=== PATIENT | female | born 1980 ===

== ENCOUNTER 2019-09-08 08:42 | Day surgery (SDC) | payer OTHER ==
[~2019-09-08] VITALS: Ht 162.6 cm; Wt 88.0 kg
[2019-09-08] VITALS (8 sets, daily range): BP systolic 106–144; BP diastolic 62–86
[~2019-09-08 08:42] MED LIST: DUCODYL5 MG PO; LR 1000ml 1,000 ML IVLG SCH; OMEPRAZOLE20 M2 ORAL; REGULOID PO
--- NOTE | 2019-09-08 08:50 | Short Stay Surgery H&P ---
History of Present Illness History of Present Illness Chief Complaint Abdominal/epigastric pains/GERDs HPI Jazmín Lynn is a 39 year old female who was admitted on for GERDS/abdominal pains Patient History Allergies: Coded Allergies: No Known Allergies (Unverified , 09/07/19) PAST MEDICAL HISTORY: (1) History of throat surgery Medication History Scheduled Bisacodyl (Ducodyl), 5 MG PO DAILY, (Reported) Omeprazole (Omeprazole), 20 MG ORAL DAILY, (Reported) [Reguloid], 120 MG PO DAILY, (Reported) Review of Systems Cardiovascular: Reports: no symptoms Respiratory: Reports: no symptoms Skeletal: Reports: trauma Gastrointestinal: Reports: gastro esophageal reflux disease Genitourinary: Reports: no symptoms Neurologic: Reports: no symptoms Endocrine: Reports: no symptoms Hematologic: Reports: no symptoms Physical Exam Skin: normal HENT: normal Heart: normal Lungs: normal Abdomen: abnormal Extremities: normal Genitourinary: normal Plan Plan of Care Upper GI. endoscopy with biopsy Preop Interventions none Summary of Findings See the reports. Attestation Are the patient's medical conditions optimized for surgery? Attestation Response: yes Dede Coleman MD Sep 08, 2019 08:50
--- NOTE | 2019-09-08 08:51 | Pre-Procedure Note/Attestation ---
Pre-Procedure Note/Attestation Complete Prior to Procedure Planned Procedure: left Procedure Narrative: Examination of the upper and the lower GI tract Indications for Procedure Pre-Operative Diagnosis: R/O gastritis/peptic ulcer and esophagitis Attestation I attest that I discussed the nature of the procedure; its benefits; risks and complications; and alternatives (and the risks and benefits of such alternatives ), prior to the procedure, with the patient (or the patient's legal renewals representative). I attest that, if there was a reasonable possibility of needing a blood transfusion, the patient (or the patient's legal renewals representative) was given the [facility] standardized written summary, pursuant to the Elías Antolin Blood Safety Act ([place] Health and Safety Code # 1645, as amended). I attest that I re-evaluated the patient just prior to the surgery and that there has been no change in the patient's H&P, except as documented below: Dede Coleman MD Sep 08, 2019 08:51
--- NOTE | 2019-09-08 09:41 | Discharge Instructions ---
Discharge Instructions Discharge Instructions Follow up with: See the doctor after two weeks in the office For Congestive Heart Failure Reminder Report to your physician any weight gain of 5 pounds or more in one week. Dede Coleman MD Sep 08, 2019 09:41
[2019-09-08] MEDS ORDERED: Propofol 200mg/20ml IV ONE (10:00)
[2019-09-08] MEDS ORDERED: Lidocaine 1% MPF 10mg/ml 5ml ONE (10:00)
[2019-09-08] MEDS ORDERED: LR 1000ml ONE (10:00)
--- NOTE | 2019-09-08 10:01 | Anethesia Preoperative Eval ---
Anesthesia Pre-op PMH/ROS General Date of Evaluation: Sep 08, 2019 Time of Evaluation: 09:40 Anesthesiologist: Kristina Sarkar CRNA ASA Score: ASA 2 Mallampati Score Class I : Soft palate, uvula, fauces, pillars visible Class II: Soft palate, uvula, fauces visible Class III: Soft palate, base of uvula visible Class IV: Only hard plate visible Mallampati Classification: Class II Surgeon: Koko Diagnosis: GERD Surgical Procedure: EGD with biopsies Anesthesia History: none Family History: no anesthesia problems Allergies: Coded Allergies: No Known Allergies (Unverified , 09/07/19) Medications: see eMAR Patient NPO?: Yes NPO Date: Sep 08, 2019 NPO Time: 00:00 Past Medical History Cardiovascular: Denies: HTN, CAD, ND, valve dz, arrhythmia, other Pulmonary: Denies: asthma, COPD, MARY, other Neurologic/Psychiatric: Reports: depression/anxiety; Denies: dementia, CVA, TIA, other HEENT: Denies: cataract (L), cataract (R), glaucoma, [place] (L), [place] (R), other Hematology/Immune: Denies: anemia, DVT, bleeding disorder, other Musculoskeletal/Integumentary: Denies: OA, RA, DJD, DDD, edema, other Other: obesity PMH Narrative: as noted above PSxH Narrative: tonsillectomy, eye surgery Anesthesia Pre-op Phys. Exam Physician Exam Last Vital Signs Date Time Temp Pulse Resp B/P (MAP) Pulse Ox O2 Delivery O2 Flow Rate FiO2 09/08/19 09:21 Room Air 09/08/19 09:16 98.4 67 18 144/86 100 Constitutional: NAD Neurologic: other - alert & oriented Cardiovascular: RRR Respiratory: CTA Gastrointestinal: S/NT/ND Airway Exam Mallampati Score: Class II MO: full Neck: FROM TMD: > 3 FB ROM: full Teeth: intact Dentures: no upper, no lower Anesthesia Pre-op A/P Labs Urine Test Test 09/08/19 08:55 Urine HCG, Qualitative Negative (NEGATIVE) Risk Assessment & Plan Assessment: ASA 2, ok to proceed Plan: MAC Status Change Before Surgery: No Pre-Antibiotics Given Within 1 Hr of Incision: Kristina Mohan CRNA Sep 08, 2019 10:00
--- NOTE | 2019-09-08 10:14 | Immediate Post-Op Evaluation ---
Immediate Post-Op Evalulation Immediate Post-Op Evalulation Procedure: EGD with biopsies Date of Evaluation: Sep 08, 2019 Time of Evaluation: 10:12 IV Fluids: LR 300 ml Blood Pressure Systolic: 111 Blood Pressure Diastolic: 62 Pulse Rate: 52 Respiratory Rate: 20 O2 Sat by Pulse Oximetry: 100 Temperature (Fahrenheit): 97.6 Pain Score (1-10): 0 Nausea: No Vomiting: No Complications none Patient Status: awake, patent Hydration Status: adequate Given Within 1 Hr of Incision: Kristina Mohan CRNA Sep 08, 2019 10:14
--- NOTE | 2019-09-08 11:34 | 48 Hour Post Anesthesia Eval ---
Post Anesthesia Evaluation Procedure: EGD with biopsies Date of Evaluation: Sep 08, 2019 Time of Evaluation: 11:34 Blood Pressure Systolic: 123 0: 80 Pulse Rate: 51 Respiratory Rate: 16 Temperature (Fahrenheit): 97.5 O2 Sat by Pulse Oximetry: 100 Airway: patent Nausea: No Vomiting: No Pain Intensity: 0 Hydration Status: adequate Cardiopulmonary Status: stable Mental Status/LOC: patient returned to baseline Follow-up Care/Observations: per GI Post-Anesthesia Complications: none Follow-up care needed: N/A Kristina Sarkar CRNA Sep 08, 2019 11:34
--- NOTE | 2019-09-08 15:45 | Pre-op HX & Phy Repo 2 SIG ---
DATE OF ADMISSION: 09/08/2019 HISTORY OF PRESENT ILLNESS: The applicant is a 39-year-old female who is being seen prior to undergoing the procedure for upper GI endoscopy, for which she has been scheduled to receive for evaluation of gastrointestinal symptoms that she has suffered subsequent to work injury. The patient basically tells me that she is having pains over all parts of the abdomen, mostly epigastric area. It is accompanied with symptoms of gastroesophageal reflux consistent with GERD. She had occasional nausea, but she relates that to possibly side effects of medications that she takes. There has been no dysphagia, odynophagia. She denies having any hematemesis, melena, hematochezia, except occasional rectal bleeding which seems to be related to the hemorrhoids, which is not major. 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 She was started on multiple medications including nonsteroidal anti-inflammatory agents and strong analgesics such as tramadol. She was, however, has been taking nonsteroidal anti-inflammatory agents as I mentioned such as ibuprofen, Advil, etc. that she is also taking occasionally [id number]. She has been treated for the symptoms of heartburn with omeprazole that she stopped taking it, which was not unfortunately authorized to receive anymore. She also reports that during the night, she is awakened and feeling pressure over the epigastric area because of the sternal bone. She also does have significant constipation as well, as she also complains of difficulty passing the stools. She, however, denies having symptoms of palpitations or eructations or regurgitation or belching etc and she reports that in the past, she was diagnosed to have Helicobacter pylori infection and that she received adequate treatment, which was approximately two months ago. PAST MEDICAL HISTORY: The patient denies having any hypertension, hypercholesterolemia, or diabetes, etc. PAST SURGICAL HISTORY: The patient has had throat surgery many years ago. ALLERGIES: None significant. CHILDHOOD DISEASES: Small pox and chickenpox. FAMILY HISTORY: Mother has had diabetes mellitus and some of the siblings also have diabetes mellitus as well. HABITS: The applicant denies drinking alcohol or smoking cigarettes. She drinks only occasionally, very rarely in parties. MEDICATIONS: Ibuprofen, as she has been taking it by herself from [id number] for the pain that she is suffering over the lower back. REVIEW OF SYSTEMS: Basically history of present illness. She denies any headaches, shortness of breath, cough, or chest pain. Currently, condition that she has is suffering from the bodily pain subsequent to work injury. The pain is mostly tenderness over the lower back area. Neurological, nonsignificant. INITIAL PREOPERATIVE IMPRESSION: 1. Generalized abdominal pain of uncertain etiology, possibly consistent with irritable bowel syndrome. 2. History of epigastric pain and gastroesophageal reflux, aggravated by NSAID medications, rule out underlying NSAID-induced gastropathy, peptic ulcer disease, etc. 3. History of Helicobacter pylori, treated. 4. Severe anxiety and depression and orthopedic injuries related to work accident. COMMENTS: At this point, I feel that the patient is stable to undergo the procedure of the upper endoscopic examination. The vital signs as examined today is temperature 98.1, pulse rate 67, respiratory rate is 18, blood pressure 144/86, oxygen saturation 100% on room air. The patient is going to be followed in the office after performance of upper GI endoscopy after two weeks for further evaluation. Said Marilee Coleman DR: ANJUM JOB#: [id number] CC:
--- NOTE | 2019-09-08 15:45 | Operative Note - Dictated ---
DATE OF OPERATION: 09/08/2019 SURGEON: Dede Coleman M.D. PROCEDURE: Esophagogastroduodenoscopy with biopsy. PREOPERATIVE DIAGNOSIS: Rule out NSAID-induced gastropathy, peptic ulcer disease, gastritis, esophagitis. POSTOPERATIVE DIAGNOSIS: Mild inflammatory process in the antrum consistent with mild antritis, which was biopsied. Otherwise, normal study. MEDICATION USED: Per Ms. Cruzy CRISTINA Sarkar. INSTRUMENT: GIF Olympus upper GI video endoscope. DESCRIPTION OF PROCEDURE: The patient after arriving in the endoscopy unit, was told about risks and benefits of the procedure, which she accepted and signed informed consent. Then, she was put on the left lateral decubitus position. After adequate IV sedation, the scope was gently passed through the cricopharyngeal area, was lodged into the upper esophagus, gradually advanced towards gastroesophageal junction and this examination revealed complete normal findings of esophagus. No evidence of inflammatory process, ulceration, stricture, etc. was found. GE junction also looked normal. No Nur's or hiatal hernia noted. At this time, the scope was advanced into the stomach and gastric cavity was distended with insufflation of air and gradually the areas of the fundus and the body and the antrum were examined. The upper parts of the stomach was normal, however, upon reaching towards the antrum, there was some inflammatory process consistent with antritis, but it was very mild, however, it was biopsied. There was no ulcers, bleeding site, polyps, tumors, etc. A retroflexion maneuver was also applied for examination of gastroesophageal junction in a closer fashion, which revealed normal findings. At this time, the scope was passed through the pylorus, first and second portion of duodenum were found to be completely normal. Finally, the scope was pulled out and the procedure was terminated. The patient tolerated the procedure well and left the endoscopy room in a good condition. Dede Coleman M.D. DR: TRU JOB#: [id number] CC:
== END 2019-09-08 11:10 | disposition home or self-care (01) ==
LOC: GAS 08:42
DX: K29.60 Other gastritis without bleeding (principal); R10.84 Generalized abdominal pain; K21.9 Gastro-esophageal reflux disease without esophagitis; Z79.899 Other long term (current) drug therapy; F41.9 Anxiety disorder, unspecified; F32.9 Major depressive disorder, single episode, unspecified
CPT/HCPCS: 43239; 81025; J2704; 94003; 94150